=== PATIENT | female | born 1970 | race Caucasian/White ===

== ENCOUNTER 2019-01-17 16:16 | Emergency (ER) | payer MEDICAID ==
[~2019-01-17] VITALS: Ht 175.3 cm; Wt 113.3 kg
[~2019-01-17 16:16] MED LIST: CYCL-1 PO; PHEN-786 PO
--- NOTE | 2019-01-17 19:28 | NUR ---
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
[2019-01-17 20:08] VITALS: BP 171/99
== END 2019-01-17 20:09 | disposition home or self-care (01) ==
LOC: ER 16:17
DX: M79.89 Other specified soft tissue disorders (principal); R22.43 Localized swelling, mass and lump, lower limb, bilateral; I10 Essential (primary) hypertension; Z90.49 Acquired absence of other specified parts of digestive tract; Z79.899 Other long term (current) drug therapy
CPT/HCPCS: 93970; 99284

== ENCOUNTER 2025-08-07 15:09 | Emergency (ER) | payer MEDICAID ==
[~2025-08-07] VITALS: Ht 172.7 cm; Wt 121.8 kg
[2025-08-07 15:16] VITALS: BP 172/112; PULSE 117; RESP 18; TEMP 97; O2SAT 95
--- NOTE | 2025-08-07 17:07 | Physician Documentation ---
History of Present Illness ~ Chief Complaint: Leg Pain Stated Complaint: L LEG PAIN Time Seen by MD: 16:31 Primary Medical Doctor: Rusty Schilling HPI 55-year-old female who presents to the emergency department requesting ultrasound imaging of the left lower extremity. Reports yesterday morning she woke up with pain to the left lower leg to the medial aspect of distal calf. Pr esented to urgent care and had ultrasound imaging obtained. She was not been presented the results of the ultrasound despite reaching out to her primary care physician's office and to the radiologist. She informs me that she will not have the results for 48 hours. She denies shortness of breath and/or palpitations and no prior history of the same. Denies hypercoagulable state. There is no redness or fever. Tetanus witin 5 years: Yes Medication Reconciliation Allergies: Coded Allergies: No Known Allergies (Unverified , 06/14/13) Scheduled Cyclobenzaprine* (Cyclobenzaprine*), 1 TAB PO TID Phenazopyridine Hcl (Pyridium tablet), 200 MG PO TID Past Medical History Past Medical History: Hypertension Past Surgical History: cholecystectomy Lives In: Home Review of Systems All Other Systems at this time: Reviewed and Negative Constitutional: Denies: fever Musculoskeletal: Reports: muscle pain Integumentary: Denies: rash Physical Exam Vital Signs: RN Vital Signs have been reviewed: Yes, Temperature: 97.0, Source: Temporal, Heart Rate: 117, Respiratory Rate: 18, BP: 172/112, Pulse Oximetry: 95, Weight: 121.800 Oxygen Flow Rate: 0 General Appearance: alert, WD/WN, no apparent distress Head: normal inspection EENT: PERRL/EOMI Legs: normal inspection, soft tissue tenderness (Medial lower calf Achilles grossly intact. 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 No clinical suspicion for cellulitis at this time foreign body and/or fracture. Ultrasound imaging results pending. Based on preliminary report- shared decision-making for patient to follow up with the primary care physician for appropriate anticoagulation therapy. After further reviewing the official read and having greater clarity that there is a superficial along with DVT with subacute appearing occlusive thrombus in one of the 2nd posterior tip of the hands. Of the known this at the time I likely with considered anticoagulation therapy. 1. Positive for DVT with subacute appearing occlusive thrombus in the 1 of the 2 posterior tibial veins. 2. Occlusive acute to subacute appearing superficial vein thrombus in the left greater saphenous vein at the ankle. 3. Left popliteal fossa Crowder's cyst. Patient is discharged from the emergency department to follow up with the primary care physician for shared decision-making for most appropriate anticoagulant therapy based on patient's past medical history. Discharged without shortness of breath tachycardia or palpitations. No clinical suspicion for pulmonary emboli General Diff Dx:Considerations: Include: Contusion, Sprain (Calf strain), Other (DVT, Crowder's cyst) Knee Diff Dx:Considerations: Include: Other (n/a) Ankle Diff Dx:Considerations: Include: Other (n/a) Foot Diff Dx:Considerations: Include: Other (n/a) Toe Diff Dx:Considerations: Include: Other (n/a) Departure Disposition: 01 HOME / SELF CARE / HOMELESS Impression: Primary Impression: Superficial lower leg DVT Additional Impressions: Deep vein thrombosis Qualified Codes: I82.492 - Acute embolism and thrombosis of other specified deep vein of left lower extremity Bakers cyst Condition: Stable Discharge Instructions: RICE Therapy for Routine Care of Injuries, [id number] Additional Instructions: In the Emergency department today you recieved ultrasound imaging which prelim shows a superficial DVT along with a Crowder's cyst. This is a preliminary read and pending Radiology review. Please have your primary care physician weigh in on the results of the ultrasound and determine if anticoagulation is necessary. Thank you for visiting emergency department [facility]. Referrals: NO PRIMARY CARE PROVIDER (PCP) Education Educated: Patient Educated regarding: diagnosis, treatment, need for follow up Signature Scribe Signature: . Attestation: . LEYDI ANGULO [facility] Aug 07, 2025 17:07
--- NOTE | 2025-08-07 18:00 | VASCULAR REPORT ---
CLINICAL HISTORY: Left lower extremity pain and swelling TECHNIQUE: Color and duplex doppler imaging of the left lower extremity veins was performed. Vessel compression if possible was also performed. WID: COMPARISON: None FINDINGS: Contralateral right common femoral veins: Normal flow and phasicity. Left common femoral vein: Normal compressibility and flow. Left femoral vein: Normal compressibility and flow. Left popliteal vein: Normal compressibility and flow. There is occlusive mixed echogenicity thrombus 1 of the 2 posterior tibial veins Occlusive predominantly hypoechoic thrombus in the left greater saphenous vein in the ankle. There is a fluid collection in the left popliteal fossa measuring 3.3 x 2.3 cm. IMPRESSION: 1. Positive for DVT with subacute appearing occlusive thrombus in the 1 of the 2 posterior tibial veins. 2. Occlusive acute to subacute appearing superficial vein thrombus in the left greater saphenous vein at the ankle. 3. Left popliteal fossa Crowder's cyst.
== END 2025-08-07 18:07 | disposition home or self-care (01) ==
LOC: ER 15:09
DX: I82.402 Acute embolism and thrombosis of unspecified deep veins of left lower extremity (principal); I10 Essential (primary) hypertension; Z90.49 Acquired absence of other specified parts of digestive tract
CPT/HCPCS: 93971; 99284